=== PATIENT | male | born 2000 | race Hispanic/Latino ===

== ENCOUNTER 2024-09-08 05:51 | Emergency (ER) | payer SELFPAY ==
[2024-09-08] MEDS ORDERED: Boostrix 0.5 ML (Tdap) VIAL (>/=7 yrs of age) ONE (05:57)
[2024-09-08] MEDS ORDERED: Acetaminophen 325 MG TAB ONE (06:13)
[2024-09-08] MEDS ORDERED: HYDROcodone/Acetaminophen 5/325 mg Tablet ONE (06:14)
[2024-09-08] MEDS ORDERED: Lidocaine 1% w/Epinephrine 1:100K 20 ML VIAL ONE (06:28)
== END 2024-09-08 07:58 | disposition home or self-care (01) ==
LOC: NAV ERS 05:51 → EDBD 05:51 → NAV ERS 07:58
DX: S91.011A Laceration without foreign body, right ankle, initial encounter (principal); Z23 Encounter for immunization; W19.XXXA Unspecified fall, initial encounter
CPT/HCPCS: 12005; 90471; 90715

== ENCOUNTER 2024-09-17 17:32 | Emergency (ER) | payer SELFPAY | END 2024-09-17 19:25 | disposition home or self-care (01) | LOC: NAV ERS 17:32 | DX: S91.011D Laceration without foreign body, right ankle, subsequent encounter (principal); X58.XXXD Exposure to other specified factors, subsequent encounter ==